=== PATIENT | female | born 1990 | race Caucasian/White ===

== ENCOUNTER 2022-06-05 13:37 | Emergency (ER) | payer OTHER ==
[~2022-06-05] VITALS: Ht 165.1 cm; Wt 75.3 kg
[2022-06-05 13:37] VITALS: BP_SYST 137
[2022-06-05] MEDS ORDERED: ACETAMINOPHEN 325 MG TABLET PO ONE (14:30)
[2022-06-05 15:11] LABS: BILIRUBIN,URINE NEGATIVE (NEGATIVE); CLARITY/URINE SL CLOUDY (CLEAR); COLOR,URINE YELLOW (YELLOW); GLUCOSE,URINE NEGATIVE (NEGATIVE); KETONES,URINE NEGATIVE (NEGATIVE); LEUKOCYTE ESTERASE ,URINE NEGATIVE (NEGATIVE); NITRITE, URINE NEGATIVE (NEGATIVE); PH,URINE 6.5 (5.0-8.0); PROTEIN URINE NEGATIVE (NEGATIVE); UROBILINOGEN,URINE 0.2 (0.2-1.0)
[2022-06-05 15:15] LABS: BLOOD, URINE TRACE (NEGATIVE)
[2022-06-05 15:23] LABS: BACTERIA,URINE FEW /HPF (None Seen); WBC,URINE NONE SEEN /HPF (0-3)
[2022-06-05 15:25] LABS: BASOPHILS # (AUTO) 0.1 K/uL (0.0-0.2); BASOPHILS % (AUTO) 0.6 % (0.0-2.0); EOSINOPHILS # (AUTO) 0.1 K/uL (0.0-0.4); EOSINOPHILS % (AUTO) 0.5 % (0.0-4.0); HEMATOCRIT 40.6 % (36-48); HEMOGLOBIN 13.4 g/dL (12.0-16.0); LYMPHOCYTES # (AUTO) 2.6 K/uL (1.0-5.5); LYMPHOCYTES % (AUTO) 22.3 % (20.5-51.5); MEAN CORPUSCULAR HEMOGLOBIN 30 pg (27-31); MEAN CORPUSCULAR HGB CONC 33 % (32-36); MEAN CORPUSCULAR VOLUME 92 fL (79.0-98.0); MONOCYTES # (AUTO) 0.8 K/uL (0.0-1.0); MONOCYTES % (AUTO) 6.6 % (1.7-9.3); PLATELET COUNT (AUTO) 220 K/uL (130-430); RED BLOOD CELL COUNT(AUTO) 4.44 MIL/uL (4.2-6.2); RED CELL DISTRIBUTION WIDTH 12.4 % (9.0-15.0); WHITE BLOOD COUNT (AUTO) 11.4 K/uL (4.8-10.8)
[2022-06-05 18:12] VITALS: BP_SYST 128
== END 2022-06-05 18:12 | disposition home or self-care (01) ==
LOC: SED 13:37
DX: O26.891 Other specified pregnancy related conditions, first trimester (principal); Z3A.01 Less than 8 weeks gestation of pregnancy; Z79.899 Other long term (current) drug therapy
CPT/HCPCS: 36415; 76801; 76817; 81000; 81025; 84702; 85025; 86900; 86901; 99284

== ENCOUNTER 2022-08-04 14:44 | Emergency (ER) | payer OTHER ==
--- NOTE | 2022-08-04 15:30 | NUR ---
PT TRIAGED. PT C/O VAG BLEEDING AND FEELING WEAK. PLACED PT BACK IN WHEEL CHAIR. WILL CONTINUE TO MONITOR
[2022-08-04 15:33] VITALS: BP_SYST 96
--- NOTE | 2022-08-04 15:39 | NUR ---
PATIENT'S YELLED THAT WAS PASSED OUT IN WHEEL CHAIR. ASSISTED PT TO BED 1. REPORT GIVEN TO VIV SHEPARD
--- NOTE | 2022-08-04 15:40 | NUR ---
# 18 gauge angiocath placed to RAC. Use of asceptic technique. Opsite placed over site. Blood return noted. Blood for lab drawn from site. Flushed with 10 cc of normal saline. No evidence of infiltration noted. Patient tolerated well.
--- NOTE | 2022-08-04 15:40 | NUR ---
pt bib c/o vaginal bleeding. pt states the bleeding started last night and has been saturating a pad every 30 minutes to an hour. pt is gcs 15 eyes open spontaneously. pt is oriented to person, place, time, and situation. pt obeys commands. pt denies visual or audditory problems at this time. pt does have nausea at this time md made aware new orders. pt is pale and skin is slightly cool. pt denies abdominal pain but complains of cramping feeling. pt is on bed le currently passing a clot. pt is in room 1 on the monitor with at bedside plan of care continues.
[2022-08-04] MEDS ORDERED: NACL 0.9% 1,000 ML IV ONE (15:45)
--- NOTE | 2022-08-04 15:46 | NUR ---
EKG performed at by VIV Harkins. Physician given copy of EKG for review.
[2022-08-04] MEDS ORDERED: ONDANSETRON HCL 4 MG/2 ML VIAL IVP ONE (16:00)
[2022-08-04] MEDS ORDERED: KETOROLAC TROMETHAMINE 15 MG VIAL IVP ONE (16:00)
[2022-08-04 16:06] LABS: BASOPHILS # (AUTO) 0.1 K/uL (0.0-0.2); HEMATOCRIT 37.8 % (36-48); WHITE BLOOD COUNT (AUTO) 16.6 K/uL (4.8-10.8)
[2022-08-04 16:14] LABS: BASOPHILS % (AUTO) 0.5 % (0.0-2.0); EOSINOPHILS # (AUTO) 0.1 K/uL (0.0-0.4); EOSINOPHILS % (AUTO) 0.8 % (0.0-4.0); HEMOGLOBIN 12.7 g/dL (12.0-16.0); LYMPHOCYTES # (AUTO) 4.5 K/uL (1.0-5.5); LYMPHOCYTES % (AUTO) 27.1 % (20.5-51.5); MEAN CORPUSCULAR HEMOGLOBIN 31 pg (27-31); MEAN CORPUSCULAR HGB CONC 34 % (32-36); MEAN CORPUSCULAR VOLUME 91 fL (79.0-98.0); MONOCYTES # (AUTO) 0.9 K/uL (0.0-1.0); MONOCYTES % (AUTO) 5.7 % (1.7-9.3); NEUTROPHILS % (AUTO) 65.9 % (40.0-70.0); PLATELET COUNT (AUTO) 240 K/uL (130-430); RED BLOOD CELL COUNT(AUTO) 4.14 MIL/uL (4.2-6.2); RED CELL DISTRIBUTION WIDTH 12.3 % (9.0-15.0)
--- NOTE | 2022-08-04 16:15 | NUR ---
Pelvic exam performed by Dr Cook with this RN at bedside for entire examination. Patient tolerated procedure well. Large amount of blood clots removed. Patient assisted to position of comfort after examination.
[2022-08-04 16:20] LABS: CALCIUM 9.6 mg/dL (8.4-11.0); CREATININE 0.76 mg/dL (0.55-1.30)
--- NOTE | 2022-08-04 16:29 | NUR ---
information technology associate at bedside for pelvic Ultrasound
[2022-08-04 16:46] LABS: ALBUMIN 3.7 g/dL (3.4-4.8); TOTAL BILIRUBIN 0.4 mg/dL (0.0-1.0)
--- NOTE | 2022-08-04 18:36 | NUR ---
Patient states that she is feeling better but continues to expel clots when in bathroom. Continuing to observe poatient at this time.
[2022-08-04 18:46] VITALS: BP_SYST 112
--- NOTE | 2022-08-04 18:48 | NUR ---
Patient given written and verbal discharge instructions and verbalizes understanding. ER MD discussed with patient the results and treatment provided. Patient in stable condition. ID arm band removed. IV catheter removed intact and dressing applied, no active bleeding. Copies of ECG and labs given to be given to patient's PHARMACY RESOURCE TECH MD. Patient educated on pain management and to follow up with PHARMACY RESOURCE TECH MD. Pain Scale 0/10. Opportunity for questions provided and answered.
== END 2022-08-04 18:46 | disposition home or self-care (01) ==
LOC: SED 14:44
DX: O03.4 Incomplete spontaneous abortion without complication (principal); O26.891 Other specified pregnancy related conditions, first trimester; Z3A.01 Less than 8 weeks gestation of pregnancy; Z79.899 Other long term (current) drug therapy
CPT/HCPCS: 99285; 96374; 76856; 96361; 96375; 80053; 84702; 85025; 86886; 86900; 86901; 87040; 36415; 93005; 83605; J1885; J2405; J7030